=== PATIENT | female | born 2000 | race Caucasian/White ===

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

== ENCOUNTER 2020-04-22 22:00 | Emergency (ER) | payer MEDICAID ==
[~2020-04-22] VITALS: Ht 162.6 cm; Wt 84.4 kg
[2020-04-22] MEDS ORDERED: IBUPROFEN 800MG TABLET PO ONE (22:30)
[2020-04-22 22:48] LABS: CLARITY URINE CLEAR (CLEAR); COLOR URINE YELLOW (YELLOW); KETONES URINE NEGATIVE (NEGATIVE); LEUKOCYTE ESTERASE URINE NEGATIVE (NEGATIVE); NITRITE URINE NEGATIVE (NEGATIVE); OCCULT BLOOD URINE TRACE (NEGATIVE); PROTEIN URINE NEGATIVE (NEGATIVE)
[2020-04-22 23:09] LABS: BASOPHILS % 0.6 % (0.0-2.0); EOSINOPHILS % 3.1 % (0.0-5.0); HEMATOCRIT. 37.6 % (36.0-48.0); HEMOGLOBIN. 12.7 g/dL (12.0-16.0); LYMPHOCYTES % 20.2 % (20.0-50.0); MEAN CORPUSCULAR HEMOGLOBIN 28.5 pg (28.0-32.0); MEAN PLATELET VOLUME 7.1 fl (7.4-10.4); NEUTROPHILS % 70.1 % (40.0-76.0); PLATELET 432 x1000/uL (130-400); RED BLOOD CELL COUNT 4.47 mill/uL (4.2-5.4); RED CELL DISTRIBUTION WIDTH 13.1 % (11.6-14.6)
[2020-04-22 23:17] LABS: CHLORIDE 105 mEq/L (98-107)
[2020-04-22 23:37] VITALS: BP 133/87
== END 2020-04-22 23:40 | disposition home or self-care (01) ==
LOC: ER 22:00
DX: R10.32 Left lower quadrant pain (principal); Z88.0 Allergy status to penicillin
CPT/HCPCS: 36415; 80053; 81003; 81025; 85025; 99283

== ENCOUNTER 2021-11-17 23:07 | Emergency (ER) | payer MEDICAID ==
[~2021-11-17] VITALS: Ht 157.5 cm; Wt 78.0 kg
[2021-11-18 02:37] VITALS: BP 128/75
== END 2021-11-18 02:38 | disposition home or self-care (01) ==
LOC: ER 23:07
DX: S93.504A Unspecified sprain of right lesser toe(s), initial encounter (principal); Z88.0 Allergy status to penicillin; W22.8XXA Striking against or struck by other objects, initial encounter; Y93.E1 Activity, personal bathing and showering; Y92.012 Bathroom of single-family (private) house as the place of occurrence of the external cause
CPT/HCPCS: 73660; 81025; 99283

== ENCOUNTER 2024-06-28 20:07 | Emergency (ER) | payer SELFPAY ==
[~2024-06-28] VITALS: Ht 157.5 cm; Wt 76.0 kg
[2024-06-28 20:20] VITALS: TEMP 36.7; O2SAT 99
[2024-06-28] MEDS ORDERED: TOPUD MT (21:57)
[2024-06-28 22:23] VITALS: BP 126/87; PULSE 79; RESP 17; O2SAT 100
== END 2024-06-28 22:25 | disposition home or self-care (01) ==
LOC: ER 20:07
DX: S93.401A Sprain of unspecified ligament of right ankle, initial encounter (principal); Z88.0 Allergy status to penicillin; Y93.A3 Activity, aerobic and step exercise; Y92.89 Other specified places as the place of occurrence of the external cause; Y99.8 Other external cause status
CPT/HCPCS: 99282; Z7610